=== PATIENT | male | born 1970 | race Two or more races ===

== ENCOUNTER 2020-05-31 22:37 | Emergency (ER) | payer SELFPAY ==
[~2020-05-31] VITALS: Ht 177.8 cm; Wt 72.2 kg
[2020-05-31 22:41] VITALS: BP 142/86
[2020-05-31 23:03] LABS: BASOPHILS % (AUTO) 1 % (0-1); EOSINOPHILS % (AUTO) 1 % (1-7); LYMPHOCYTES % (AUTO) 28 % (22-44); MEAN CORPUSCULAR HEMOGLOBIN 31.2 pg (27.5-34.5); MEAN CORPUSCULAR HGB CONC 33.7 g/dL (33.2-36.2); MEAN PLATELET VOLUME 8.9 fL (7.4-10.4); MONOCYTES % (AUTO) 6 % (2-9); NEUTROPHILS % (AUTO) 64 % (42-75); PLATELET COUNT 171 x10^3/uL (130-400); RED BLOOD COUNT 5.31 x10^6/uL (4.38-5.82); RED CELL DISTRIBUTION WIDTH 13.7 % (9.4-14.8)
[2020-05-31 23:06] LABS: MD NO
[2020-05-31 23:20] LABS: ALANINE AMINOTRANSFERASE 22 U/L (12-78); ANION GAP 3 mmol/L (5-15); CHLORIDE 112 mmol/L (98-107); CREATININE 1.34 mg/dL (0.7-1.3); SALICYLATE LEVEL 3.7 mg/dL (2.8-20.0)
[2020-05-31 23:22] LABS: ALKALINE PHOSPHATASE 57 U/L (45-117); BILIRUBIN,TOTAL 0.3 mg/dL (0.2-1.0); TOTAL PROTEIN 7.4 g/dL (6.4-8.2)
--- NOTE | 2020-06-01 01:05 | NUR ---
PT OUT TO USE PHONE TO CALL .
--- NOTE | 2020-06-01 01:10 | NUR ---
PT APPEARS TO HAVE ELOPED. PT LAST SEEN VSS STABLE, AMBULATORY.
[2020-06-01 01:26] LABS: MICROSCOPIC NOT IND
[2020-06-01 01:30] LABS: AMPHETAMINE SCREEN, URINE Negative (Negative); BARBITURATE SCREEN, URINE Negative (Negative); BENZODIAZEPINE SCREEN, URINE Negative (Negative); CANNABINOID SCREEN, URINE Positive (Negative); COCAINE SCREEN, URINE Negative (Negative); METHADONE SCREEN, URINE Negative (Negative); OPIATE SCREEN, URINE Negative (Negative)
== END 2020-06-01 01:42 ==
LOC: ED 06-01 01:11
DX: F15.159 Other stimulant abuse with stimulant-induced psychotic disorder, unspecified (principal); F12.159 Cannabis abuse with psychotic disorder, unspecified; F22 Delusional disorders; F17.210 Nicotine dependence, cigarettes, uncomplicated
CPT/HCPCS: 36415; 80053; 80307; 81003; 85025; 99283

== ENCOUNTER 2020-07-05 08:57 | Emergency (ER) | payer BC, OTHER ==
[~2020-07-05] VITALS: Ht 175.3 cm; Wt 77.0 kg
[2020-07-05 09:29] VITALS: BP 118/89
--- NOTE | 2020-07-05 09:38 | NUR ---
TESTING FOR COVID THEN
--- NOTE | 2020-07-05 09:46 | NUR ---
PT DC FROM TRIAGE IN A STABLE CONDITION.
== END 2020-07-05 09:49 | disposition home or self-care (01) ==
LOC: ED 09:43
DX: U07.1 COVID-19 (principal)
CPT/HCPCS: 87635; 99283